=== PATIENT | female | born 1990 | race American Indian/Alaskan Native ===

== ENCOUNTER 2020-03-23 22:24 | Emergency (ER) | payer SELFPAY ==
[2020-03-23 23:01] VITALS: BP 111/70
--- NOTE | 2020-03-24 01:49 | Emergency Department Report ---
ED Female HPI - General Chief complaint: Urogenital-Female Stated complaint: FOREIGN BODY IN VAGINA Source: patient Mode of arrival: Ambulatory Limitations: No Limitations - History of Present Illness Initial comments: Patient is a A0 29-year-old -[place] female with no past medical history presents to the ED requesting to be evaluated for a foreign body that is stuck in her vaginal canal the last 2 hours. Patient states that she was having unprotected sexual intercourse when the condom that her sexual partner was using slipped off and got stuck in her vagina about 2 hours ago. Patient states that various efforts to retrieve the condom was unsuccessful. Patient denies dyspareunia, vaginal discharge, dysuria, urinary frequency and urgency, abdominal pain, fever, chills, nausea, vomiting, vaginal bleeding, dizziness or syncope. MD Complaint: other (vaginal foreign body) -: Sudden, hour(s) (3) Location: other (vagina) Radiation: non-radiating Severity: mild Severity scale (0 -10): 0 Quality: dull Consistency: constant Improves with: none Worsens with: none Are you Now?: No Associated Symptoms: denies other symptoms. denies: vaginal discharge, vaginal bleeding, abdominal pain, nausea/vomiting, headaches, loss of appetite, dysuria, hematuria, rash, seizure, shortness of breath, syncope, weakness - Related Data Sexually active: Yes Allergies Allergy/AdvReac Type Severity Reaction Status Date / Time No Known Allergies Allergy Unverified 03/23/20 23:00 ED Review of Systems ROS: Stated complaint: FOREIGN BODY IN VAGINA Other details as noted in HPI Constitutional: denies: chills, fever Eyes: denies: eye pain, eye discharge, vision change ENT: denies: ear pain, throat pain Respiratory: denies: cough, shortness of breath, wheezing Cardiovascular: denies: chest pain, palpitations Endocrine: no symptoms reported Gastrointestinal: denies: abdominal pain, nausea, diarrhea Genitourinary: other (foreign body stuck in the vagina). denies: urgency, dysuria, discharge Musculoskeletal: denies: back pain, joint swelling, arthralgia Skin: denies: rash, lesions Neurological: denies: headache, weakness, paresthesias Psychiatric: denies: anxiety, depression Hematological/Lymphatic: denies: easy bleeding, easy bruising ED Past Medical Hx - Past Medical History Previous Medical History?: No - Surgical History Past Surgical History?: No ED Physical Exam - General Limitations: No Limitations General appearance: alert, in no apparent distress - Head Head exam: Present: atraumatic, normocephalic, normal inspection - Eye Eye exam: Present: normal appearance, PERRL, EOMI Pupils: Present: normal accommodation - ENT ENT exam: Present: normal exam, normal orophraynx, mucous membranes moist, TM's normal bilaterally - Neck Neck exam: Present: normal inspection, full ROM - Respiratory Respiratory exam: Present: normal lung sounds bilaterally. Absent: respiratory distress, wheezes, rales, rhonchi, chest wall tenderness, accessory muscle use, decreased breath sounds, prolonged expiratory - Cardiovascular Cardiovascular Exam: Present: regular rate, normal rhythm, normal heart sounds. Absent: systolic murmur, diastolic murmur, rubs, gallop - GI/Abdominal GI/Abdominal exam: Present: soft, normal bowel sounds. Absent: tenderness, guarding, rebound, hyperactive bowel sounds, hypoactive bowel sounds, organomegaly, mass - External exam: Present: normal external exam Speculum exam: Present: foreign body (Condom found within the vaginal vault around the cervix) Bi-manual exam: Present: normal bi-manual exam, other (Female ED case technician Yohana Susana present during the pelvic exam) - Extremities Exam Extremities exam: Present: normal inspection, full ROM, normal capillary refill - Back Exam Back exam: Present: normal inspection, full ROM. Absent: tenderness, CVA tenderness (R), CVA tenderness (L), muscle spasm, paraspinal tenderness, vertebral tenderness - Neurological Exam Neurological exam: Present: alert, oriented X3, CN II-XII intact, normal gait, reflexes normal - Psychiatric Psychiatric exam: Present: normal affect, normal mood - Skin Skin exam: Present: warm, dry, intact, normal color. Absent: rash ED Course Vital Signs 03/23/20 23:00 Temperature 98.3 F Pulse Rate 74 Respiratory 16 Rate Blood Pressure 111/70 O2 Sat by Pulse 99 Oximetry ED Medical Decision Making - Medical Decision Making This is a A0 29-year-old -[place] female with no past medical history presents to the ED requesting to be evaluated for a foreign body that is stuck in her vaginal canal the last 2 hours. Patient states that she was having unprotected sexual intercourse when the condom that her sexual partner was using slipped off and got stuck in her vagina about 2 hours ago. Patient states that various efforts to retrieve the condom was unsuccessful. In the ED, patient is alert and oriented x3 and is not in distress. Pelvic exam revealed a latex condom in the vaginal canal around the cervix which was successfully retrieved and removed. Patient tolerated the procedure well. Patient was then discharged home and advised to follow-up with the [facility] for further evaluation especially STD evaluations. Patient was advised return to the ED immediately if symptoms get worse. - Differential Diagnosis Foreign body in the vagina; UTI; STD; PID Critical care attestation.: If time is entered above; I have spent that time in minutes in the direct care of this critically ill patient, excluding procedure time. ED Disposition Clinical Impression: Foreign body in vulva and vagina, initial encounter Disposition: TO HOME OR SELFCARE Is pt being admited?: No Does the pt Need Aspirin: No Condition: Stable Instructions: Vaginal Foreign Body (ED) Additional Instructions: Follow-up with your [facility] physician or [facility] for further evaluation and STD testing. Return to the ED immediately if symptoms get worse. Referrals: [facility] [Outside] - 3-5 Days Time of Disposition: 02:21 Print Language: GREENLAND[place]
== END 2020-03-24 02:35 | disposition home or self-care (01) ==
LOC: ED 22:24
DX: T19.2XXA Foreign body in vulva and vagina, initial encounter (principal); X58.XXXA Exposure to other specified factors, initial encounter; Y93.89 Activity, other specified; Y92.89 Other specified places as the place of occurrence of the external cause; Y99.8 Other external cause status